=== PATIENT | female | born 1985 | race Caucasian/White ===

== ENCOUNTER 2020-06-04 13:19 | Emergency (ER) | payer OTHER ==
[~2020-06-04 13:19] MED LIST: COLACE 100MG C100 MG PO
[2020-06-04] MEDS ORDERED: IBUPROFEN600 MG PO (14:43)
[2020-06-04] MEDS ORDERED: AMOXICILLIN500 M1 PO (14:43)
== END 2020-06-04 14:48 | disposition home or self-care (01) ==
LOC: ER1 13:19
DX: K08.89 Other specified disorders of teeth and supporting structures (principal); R68.84 Jaw pain; F17.210 Nicotine dependence, cigarettes, uncomplicated
CPT/HCPCS: 99283

== ENCOUNTER 2020-09-12 04:59 | Emergency (ER) | payer OTHER ==
[~2020-09-12 04:59] MED LIST changes: +AMOXICILLIN500 M1 PO; +IBUPROFEN600 MG PO
[2020-09-12 06:05] LABS: RED BLOOD COUNT 4.15 M/UL (4.00-5.10); WHITE BLOOD COUNT 11.3 K/UL (4.5-11.0)
[2020-09-12 06:22] LABS: BUN/CREATININE RATIO 14 (0-10)
== END 2020-09-12 08:43 | disposition home or self-care (01) ==
LOC: ER1 04:59
PROVIDERS: Family Medicine
DX: R51.9 Headache, unspecified (principal); R20.0 Anesthesia of skin; E78.00 Pure hypercholesterolemia, unspecified; F17.200 Nicotine dependence, unspecified, uncomplicated; Z90.49 Acquired absence of other specified parts of digestive tract
CPT/HCPCS: 70450; 70496; 70498; 71045; 80053; 82550; 82553; 83874; 84484; 84703; 85025; 85610; 93005; 96374; 96375; 99284; J0780; J1200; J1885; Q9967

== ENCOUNTER → 2020-09-19 | Outpatient (CLI) | payer OTHER | LOC: KOH-I 12:40 | DX: R05 Cough (principal); J98.09 Other diseases of bronchus, not elsewhere classified | CPT/HCPCS: 71046 ==